=== PATIENT | male | born 1990 | race Caucasian/White ===

== ENCOUNTER 2022-10-14 18:50 | Emergency (ER) | payer SELFPAY ==
[~2022-10-14] VITALS: Ht 172.7 cm; Wt 69.9 kg
--- NOTE | 2022-10-14 19:30 | NUR ---
[id number] FROM [place], "SMOKED METH", AROUSABLE BY VOICE SINUS TACH IN MONITOR 120'S. PLACED IN BED, BREATHING EVEN AND UNLABORED SATURATING AT 96%RA.
--- NOTE | 2022-10-14 21:04 | NUR ---
Patient discharged to home in stable condition. Written and verbal after care instructions given. Patient verbalizes understanding of instruction.
[2022-10-14 21:18] VITALS: BP 135/75
== END 2022-10-14 21:10 | disposition home or self-care (01) ==
LOC: ER 18:52
DX: F15.10 Other stimulant abuse, uncomplicated (principal)